=== PATIENT | female | born 1995 | race Caucasian/White ===

== ENCOUNTER 2017-10-20 10:03 | Emergency (ER) | payer OTHER, SELFPAY ==
[2017-10-20 10:05] VITALS: BP 138/88; PULSE 99; RESP 16; TEMP 36.6; O2SAT 99; BMI 23.0
--- NOTE | 2017-10-20 10:16 | CT_ITS ---
STUDY: CT ABDOMEN AND PELVIS WITHOUT CONTRAST REASON FOR EXAM: Female, 21 years old. Right-sided flank pain. Patient has history of kidney stones. RADIATION DOSAGE (If Supplied By Facility): CTDIvol = ( 6.14 ) mGy, DLP = ( 282.10 ) mGycm TECHNIQUE: Transaxial images were obtained from the dome of the diaphragm to the symphysis pubis without oral contrast, and without intravenous contrast. Sagittal and coronal images were reconstructed. Individualized dose optimization techniques were used for this CT. COMPARISON: CT of the abdomen and pelvis dated October 19, 2015. FINDINGS: The visualized lung bases are unremarkable. The visualized portions of the heart are within normal limits. Normal liver. Normal gallbladder and extrahepatic biliary system. Normal spleen. Normal pancreas. Normal bilateral adrenal glands. Normal right kidney. Normal left kidney. Normal visualized stomach. There is no evidence for dilated bowel, ascites or pneumoperitoneum. Small bowel has a grossly normal appearance. Stool is visible throughout the colon with scattered diverticula. The appendix is visualized and appears normal. Normal abdominal aorta. Normal inferior vena cava. There is borderline retroperitoneal lymphadenopathy with enlarged nodes no greater than 10mm in the short axis diameter. Urinary bladder wall is mildly thickened measuring approximately 5.1 mm. Normal visualized uterus. Normal abdominal wall. Normal osseous structures. CT/Abdomen/Pelvis without Cont IMPRESSION: 1. No CT evidence of acute intra-abdominal disease. 2. Large amount of stool suggesting possible constipation. Electronically Signed: Tori Naranjo MD at 11:37 EDT , Service support ,
--- NOTE | 2017-10-20 10:21 | ED.DCSUM_ITS ---
- ER Visit Summary Date of Service: 10/20/17 Chief Complaint: Abdominal pain History of Present Illness: The patient is a 21 F presenting with right-sided abdominal pain. She went to urgent care and they sent her to ED for further evaluation. She has history of previous kidney stones. She states she initially thought this may be a kidney stone. She denies dysuria or hematuria. Denies possibility of . She has nausea with no vomiting. Denies fever. Denies other complaints. Physical Examination: Vitals are stable. Patient is afebrile. Alert no acute distress. HEENT exam is unremarkable. Neck is supple. Lungs are clear and equal bilaterally. Heart is regular rate and rhythm. Abdomen is soft mild RLQ tenderness with no rebound or guarding. Back: no CVA tenderness Extremities are unremarkable. Skin is warm and dry. No focal neurologic deficit. Remainder of exam is unremarkable. Emergency Department Course and Treatment: CBC, chemistries unremarkable other than potassium 3.2. Urinalysis unremarkable. HCG negative. CT abdomen shows no CT evidence of acute intra-abdominal disease. Large amount of stool suggesting possible constipation. She is given a prescription for MiraLAX. Advised to follow-up with her primary care physician. Advised return to ED if worsening complaints. Disposition: Discharge home Impression: Abdominal pain, constipation This note was generated with [employer] dictation software. It may contain incorrect words, spelling, and punctuation that were not noted in review of the chart prior to signing ED Disposition - Plan for ED Patient: Chief Complaint: Flank Pain Referrals: Lety Domingo MD [Primary Care Provider] -
[2017-10-20 10:53] LABS: Bacteria 0 SEEN /hpf (None Seen); Mucous, Urine 0 SEEN /hpf (<or=2+); Red Blood Cells-Urine 0 SEEN /hpf (0-5); White Blood Cells 0 SEEN /hpf (0-5)
[2017-10-20 10:58] LABS: Internal QC Validated? YES +Cl - CLEAR BKGD
[2017-10-20 11:00] LABS: Glucose, Dipstick Normal (Normal); Ketone-Dipstick Negative (Negative); Leukocyte Esterase-Dipstick Negative /ul (Negative); Nitrite-Dipstick Negative (Negative); Occult Blood-Urine Negative /ul (Negative); Protein-Dipstick Negative (Negative); Specific Gravity, Urine 1.015 (1.002-1.030); Urine Bilirubin Dipstick Negative (Negative); Urine Urobilinogen Normal (Normal)
[2017-10-20 11:00] LABS: Absolute Lymphocyte Count 1.91 X10^3/ul (0.83-4.51); Absolute Neutrophil Count 3.3 X10^3/uL (2.0-7.7); Basophil# 0.02 X10^3/uL; Basophil% 0.3 % (0-1); Eosinophil# 0.21 X10^3/uL; Eosinophils% 3.5 % (0-5); Hematocrit 48.3 % (37-47); Hemoglobin 16.7 g/dl (12.0-15.0); Lymphocyte # 1.91 X10^3/ul (4.0); Mean Corp Hgb Conc 34.6 g/gl (32-36); Mean Corpuscular Hgb 29.8 pg (27.0-32.0); Mean Corpuscular Volume 86.3 fL (81-99); Mean Platelet Vol. 11.1 fl (6.2-12.0); Monocyte# 0.48 X10^3/uL; Monocyte% 8.1 % (0-10); Neutrophil # 3.33 X10^3/uL (2.7-7.7); Neutrophil % 55.9 % (47-70); POSITIVE COUNT NO; POSITIVE DIFFERENTIAL NO; POSITIVE MORPHOLOGY NO; Platelet Count 248 K/mm3 (150-450); RBC Distribution Width CV 11.8 % (11.6-14.6); RBC Distribution Width SD 37.6 fl (35.1-43.9)
[2017-10-20 11:01] LABS: Color, Urine Straw (Yellow); Urine Clarity Clear (Clear)
[2017-10-20 11:02] LABS: Pregnancy, Urine Negative Negative
[2017-10-20 11:10] LABS: Anion Gap 9 (5-15); BUN 9 mg/dL (7-18); BUN/Creat Ratio 10.9 RATIO (10-20); Calcium,Total 9.3 mg/dL (8.5-10.1); Chloride 107 mmol/L (98-107); Creatinine, Serum 0.83 mg/dL (0.55-1.02); EST Glomerular Filtration Rate 93 mL/min (>60); Est Glom Filt Rate - Afr Amer 112 mL/min (>60); Estimated Creatinine Clearance 77.66 ml/min; Glucose 70 mg/dL (74-106); Potassium 3.2 mmol/L (3.5-5.1); Sodium Level 141 mmol/L (136-145)
[2017-10-20 11:12] LABS: Squamous Epithelial Cells - UA 0-5 SEEN /hpf (5-10)
--- NOTE | 2017-10-20 11:52 | ED.DEP ---
ED Disposition - Plan for ED Patient: Chief Complaint: Flank Pain Instructions: ED Constipation Prescriptions: Polyethylene Glycol 3350 [Miralax] 17 gm PO DAILY #7 packet Referrals: Lety Domingo MD [Primary Care Provider] -
[2017-10-20 12:23] VITALS: BP 150/89; PULSE 71; RESP 16; O2SAT 98
== END 2017-10-20 12:23 | disposition home or self-care (01) ==
PROVIDERS: Emergency Provider Emergency Medicine; Family Provider Pediatrics; PCP Pediatrics
DX: K59.00 Constipation, unspecified (principal); R10.31 Right lower quadrant pain; Z87.442 Personal history of urinary calculi
CPT/HCPCS: 74176; 80048; 81001; 81025; 85025; 99283; A4216

== ENCOUNTER 2024-11-20 21:15 | Emergency (ER) | payer BC, SELFPAY ==
[2024-11-20 21:16] VITALS: BP 157/91; PULSE 77; RESP 16; TEMP 36.6; O2SAT 100; BMI 27.6
[2024-11-20] MEDS: SUMAtriptan 6 MG/0.5 ML Vial SC (22:30)
--- NOTE | 2024-11-20 22:41 | EDS_ITS ---
HPI History of Present Illness Chief Complaint: Headache Informant: patient and parent Narrative Narrative: 4 days nontraumatic frontal headache. Photophobia. No nausea or vomiting. No phonophobia. No fevers. States 6 years ago had migraines with aura. No cu rrent aura. Has used Tylenol Extra Strength along with Excedrin. Last dose 6 PM. No allergies. Prior similar symptoms: Yes PFSH PFSH Medical History PMDD (premenstrual dysphoric disorder) Home Medications ?Medication ?Instructions ?Recorded ?Last Taken ?Type fluoxetine 10 mg capsule 10 mg PO DAILY 11/20/24 Unkn own History sumatriptan succinate 25 mg tablet See Rx Instructions PO .COMPLEX #6 11/20/24 Unknown Rx (Imitrex) tabs Allergy/AdvReac Type Severity Reaction Status Date / Time No Known Allergies Allergy Verified 11/20/24 21:18 Social History Smoking Status: Never smoker ROS ROS ED Constitutional Constitutional ED: Denies fever(s) Eyes Eyes: Reports other Details: Photophobia ; Denies blurry vision Cardiovascular Cardiovascular: Denies chest pain Respiratory/Chest Respiratory/Chest: Denies cough Gastrointestinal Gastrointestinal: Denies diarrhea or vomiting Musculoskeletal Musculoskeletal: Denies none Integumentary Denies rash or wounds Neurologic Neurologic: Reports headache(s); Denies weakness EXAM Physical Exam Const Vital Signs: 11/20/24 21:16 Temperature 97.9 F Temperature Source Oral Pulse Rate 77 Respiratory Rate 16 Blood Pressure 157/91 H Blood Pressure Mean 113 Pulse Ox 100 Oxygen Delivery Method Room Air Positive well nourished and well developed General Appearance ED: well developed HEENT normocephalic and atraumatic Eyes General Eye ED: Yes normal appearance of both eyes Neck full ROM and no meningeal signs Resp normal respiratory effort and normal air movement Cardio regular rate and regular rhythm GI soft to palpation Extremity normal to inspection and full ROM Neuro oriented x3 and CN's II-XII intact bilaterally Skin no rashes or lesions noted and no wounds MDM MDM MDM Narrative Medical decision making narrative: Interventions / MDM: Differential diagnosis: Migraine headache Diagnosis considered but do not suspect: No clinical meningitis. My EKG interpretation: N/A Imaging independently reviewed and interpreted by myself: N/A External documents reviewed: N/A Test considered but not ordered:N/A ED course: Nontraumatic headache for 4 days. No focal deficits. No clinical meningitis. Will try subcu Imitrex and reevaluate. 2310: Headache down to a 1 tolerable. Patient continue [id number] medications I will write a short prescription for Imitrex for breakthrough symptoms if it flares up. She will be referred to neurology. All questions were answered. Re-evaluation: stable Disposition discussed with patient/family/significant other: Patient and mother Case discussed with consulting clinician: N/A This note was generated with [employer] dictation software. It may contain incorrect words, spelling, and punctuation that were not noted in checking the note before signing. Discharge Plan Triage Chief Complaint: Headache ED Provider: Bharath Viera Dx/Rx/DC Orders Clinical Impression: Headache, migraine Instructions: ED, Migraine (Classical) Prescriptions: New sumatriptan succinate [Imitrex] 25 mg tablet See Rx Instructions .ROUTE .COMPLEX Qty: 6 0RF Rx Instructions: take 1 tab at onset of headache; if no relief may repeat 1 tab after at least 2 hrs; max = 4 tabs/24 hr No Action fluoxetine 10 mg capsule 10 mg PO DAILY Primary Care Provider: Nash Edouard Referrals: Regino Schwartz MD [Non-Staff -Ordering Privileges] - 1-2 Weeks Nash Edouard MD [Primary Care Provider] - Print Language: Malaysian Disposition Disposition: Home, Self Care Discharge Date/Time: 11/20/24 23:18
[2024-11-20 23:15] VITALS: BP 165/90; PULSE 72; RESP 18; TEMP 36.7; O2SAT 98
== END 2024-11-20 23:18 | disposition home or self-care (01) ==
PROVIDERS: Emergency Provider Emergency Medicine; PCP Family Medicine; Visit Provider Emergency Medicine
DX: G43.909 Migraine, unspecified, not intractable, without status migrainosus (principal)
CPT/HCPCS: 96372; 99282; J3030